=== PATIENT | female | born 1975 | race Caucasian/White ===

== ENCOUNTER 2020-04-26 02:42 | Emergency (ER) | payer BC, OTHER ==
[~2020-04-26] VITALS: Ht 165.1 cm; Wt 63.5 kg
[2020-04-26] MEDS ORDERED: PROZAC10 M1 PO (03:11)
[2020-04-26] MEDS ORDERED: ALPRAZOLAM XR3 MG PO (03:12)
[2020-04-26 04:40] VITALS: BP 107/73
== END 2020-04-26 04:15 | disposition home or self-care (01) ==
LOC: ER 02:42
DX: K59.00 Constipation, unspecified (principal); Z79.899 Other long term (current) drug therapy; Z88.2 Allergy status to sulfonamides